=== PATIENT | female | born 1960 | race Caucasian/White ===

== ENCOUNTER 2017-05-03 03:16 | Emergency (ER) | payer OTHER ==
--- NOTE | 2017-05-03 03:44 | ED GENERAL ADULT ---
History of Present Illness General Chief Complaint: General Adult Stated Complaint: TINGLING IN R FOOT & FINGER TIPS PER PT Source: patient Exam Limitations: no limitations Vital Signs & Intake/Output Vital Signs & Intake/Output Vital Signs Date Time Temp Pulse Resp B/P B/P Pulse O2 O2 Flow FiO2 Mean Ox Delivery Rate 05/03 0605 96.7 62 18 119/73 97 Room Air 05/03 0459 98 Room Air 05/03 0430 98.1 63 18 132/71 96 Room Air Triage Nurses Notes Reviewed? yes Onset: Gradual Duration: few months Timing: recent history Injury Environment: home Severity: mild, moderate No Modifying Factors: none Associated Symptoms: DEPRESSED AFFECT HPI: 56 year old female with history of depression on fluoxetine and hormone treatment presents with worsening numbness and tingling in her hands and feet for the past few months. Patient reports it is getting worse. Sometimes associated while sitting in a chair. Patient reports 25 lb weight gain in the past year. She reports feeling teary. Past History Travel History Traveled to [place] past 21 day No Medical History Any Pertinent Medical History? see below for history Psychiatric: depression Surgical History Surgical History: non-contributory Family History Hx Contributory? No Review of Systems Review of Systems Constitutional: Reports: weakness. Denies: chills, fever. EENTM: Reports: no symptoms. Respiratory: Denies: cough, short of breath. Cardiovascular: Denies: chest pain. GI: Denies: abdominal pain. Genitourinary: Reports: no symptoms. Musculoskeletal: Reports: no symptoms. Skin: Reports: no symptoms. Neurological/Psychological: Reports: depressed. Hematologic/Endocrine: Denies: bruising, bleeding. Immunologic/Allergic: Denies: splenectomy. All Other Systems: Reviewed and Negative Physical Exam Physical Exam General Appearance: alert, awake, anxious, mild distress, thin, TEARFUL Head: atraumatic, normal appearance Eyes: Bilateral: normal appearance, PERRL, EOMI. Ears, Nose, Throat: normal pharynx, normal ENT inspection, hearing grossly normal Neck: normal inspection, supple, full range of motion Respiratory: normal breath sounds, chest non-tender, no respiratory distress Cardiovascular: regular rate/rhythm Peripheral Pulses: 2+ radial (R), 2+ radial (L) Gastrointestinal: normal bowel sounds, soft Extremities: normal inspection, normal capillary refill, normal range of motion, no edema Neurologic/Psych: no motor/sensory deficits, awake, alert, oriented x 3, depressed affect Skin: intact, normal color, cyanosis Core Measures ACS in differential dx? No CVA/TIA Diagnosis: No Severe Sepsis Present: No Septic Shock Present: No Progress Differential Diagnoses I considered the following diagnoses in my evaluation of the patient: [ DEPRESSION, ANXIETY, DEHYDRATION, ELECTROLYTE DISTURBANCE, HORMONE IMBALANCE, THYROID DYSCFUNCTION] Plan of Care: Orders Procedure Date/time Status URINALYSIS 05/03 423 Complete THYROID STIMULATING HORMONE 05/03 423 Complete FREE T4 05/03 423 Complete COMPREHENSIVE METABOLIC PANEL 05/03 423 Complete CBC WITHOUT DIFFERENTIAL 05/03 423 Complete EKG 05/03 421 Active Laboratory Tests 05/03/17 0527: Urinalysis LIGHT H, Urine Color STRAW, Urine Clarity CLEAR, Urine pH 6.0, Ur Specific [place] 1.025, Urine Protein NEG, Urine Ketones NEG, Urine Nitrite NEG, Urine Bilirubin NEG, Urine Urobilinogen 0.2, Ur Leukocyte Esterase NEG, Ur Microscopic SEDIMENT EXAMINED, Urine RBC 1-3, Urine WBC 1-3 H, Ur Epithelial Cells FEW, Urine Bacteria MOD H, Urine Mucus FEW, Urine Hemoglobin MOD H, Urine Glucose NEG 05/03/17 0454: Anion Gap 9, Estimated GFR 52 L, BUN/Creatinine Ratio 19.1, Glucose 87, Calcium 9.6, Total Bilirubin 0.3, AST 31, ALT 40, Alkaline Phosphatase 68, Total Protein 6.8, Albumin 4.5, Globulin 2.3, Albumin/Globulin Ratio 2.0, TSH 6.610 H, Free T4 0.70, CBC w Diff NO MAN DIFF REQ, RBC 4.18 L, MCV 88.4, MCH 29.4, RDW 13.8, MPV 9.9, Gran % 42.9, Lymphocytes % 46.0, Monocytes % 8.1, Eosinophils % 2.7, Basophils % 0.3, Absolute Granulocytes 3.3, Absolute Lymphocytes 3.5 H, Absolute Monocytes 0.6, Absolute Eosinophils 0.2, Absolute Basophils 0, PUBS MCHC 33.3 PCP FAX NUMBER: (VINOD PERALES,MICHAEL) Initial ED EKG: NSR Departure Departure Time of Disposition: 558 Disposition: HOME OR SELF CARE Condition: Stable Clinical Impression Primary Impression: Depression Secondary Impressions: Paresthesias Referrals: ESTEFANY TOTH MD (PCP/Family) Additional Instructions: PLEASE FOLLOW UP WITH YOUR PRIMARY CARE DOCTOR AND WITH YOUR PSYCHIATRIST IN THE OFFICE. FOLLOW UP WITH YOUR APPOINTMENT WITH DR SOLIS. RETURN NEEDED. Departure Forms: Customer Survey General Discharge Information Critical Care Note Critical Care Note Critical Care Time: non-applicable
[2017-05-03 05:13] LABS: ABSOLUTE BASOPHIL COUNT 0 /CUMM (0.0-0.2); ABSOLUTE EOSINOPHIL COUNT 0.2 /CUMM (0.0-0.7); ABSOLUTE GRANULOCYTE CT 3.3 /CUMM (1.4-6.5); ABSOLUTE LYMPH COUNT 3.5 /CUMM (1.2-3.4); ABSOLUTE MONOCYTE COUNT 0.6 /CUMM (0.10-0.60); BASOPHIL % 0.3 % (0.0-2.0); EOSINOPHIL % 2.7 % (0-5); GRANULOCYTE % 42.9 % (42.2-75.2); MEAN CORPUSCULAR HGB 29.4 PG (27.0-31.0); MEAN CORPUSCULAR HGB CONC 33.3 G/DL (33.0-37.0); MEAN CORPUSCULAR VOLUME 88.4 FL (81.0-99.0); MEAN PLATELET VOLUME 9.9 FL (7.4-10.4); PLATELET COUNT 197 /CUMM (130-400); RBC DISTRIBUTION WIDTH 13.8 % (11.5-14.5); RED BLOOD CELL CT 4.18 /CUMM (4.20-5.40); WHITE BLOOD CELL COUNT 7.6 /CUMM (4.8-10.8)
[2017-05-03 06:05] VITALS: BP 119/73
== END 2017-05-03 06:08 ==
LOC: ERH 03:16
PROVIDERS: Emergency Medicine
DX: R20.2 Paresthesia of skin (principal); F32.9 Major depressive disorder, single episode, unspecified
CPT/HCPCS: 81001; 93005; 93010